=== PATIENT | female | born 1945 | race Two or more races ===

== ENCOUNTER → 2023-04-27 | Outpatient (CLI) | payer MEDICARE, MEDICAID ==
[2023-04-27 10:12] LABS: Basophils # (auto) 0.1 10 ^3/uL (0-0.2); Basophils % (auto) 1.4 % (0.0-2.0); Eosinophils # (auto) 0.1 10 ^3/uL (0-0.8); Hematocrit 38.4 % (36.0-46.0); Hemoglobin 12.4 g/dL (12.2-16.2); Mean Corpuscular Hemoglobin 31.1 pg (28.0-32.0); Mean Corpuscular Hgb Conc. 32.4 g/dL (32.0-36.0); Mean Corpuscular Volume 96.1 fL (80.0-100.0); Monocytes # (auto) 0.2 10 ^3/uL (0-1.3); Monocytes % (auto) 4.5 % (0.0-12.0); Neutrophils % (auto) 75.1 % (37.0-80.0); Red Cell Distribution Width 14.6 % (11.8-14.3); White Blood Cell 5.3 10^3/uL (4.4-10.8)
[2023-04-27 11:01] LABS: Potassium 5.1 mmol/L (3.5-5.1)
[2023-04-27 11:08] LABS: Albumin 3.4 g/dL (3.4-5.0); BUN/Creatinine Ratio 36.2 (10.0-20.0); Bilirubin, Total 0.4 mg/dL (0.2-1.0); Magnesium 2.4 mg/dL (1.6-2.6); Total Protein 6.6 g/dL (6.4-8.2)
== END | disposition home or self-care (01) ==
LOC: LAB 09:56
PROVIDERS: ATTEND Internal Medicine Cardiovascular Disease
DX: I27.21 Secondary pulmonary arterial hypertension (principal); I10 Essential (primary) hypertension; D64.9 Anemia, unspecified
CPT/HCPCS: 36415; 80053; 83735; 85025

== ENCOUNTER 2023-12-02 16:21 | Inpatient (IN) | payer MEDICAID, MEDICARE, OTHER ==
[~2023-12-02] VITALS: Ht 160 cm; Wt 69.2 kg
[2023-12-02] MEDS ORDERED: ALBUTEROL SULF 2.5 MG/0.5ML(0.5%) NEB SOLN NEB ONE (16:45)
[2023-12-02] MEDS ORDERED: IPRATROPIUM BROM 0.5 MG/2.5ML INH SOL NEB ONE (16:45)
[2023-12-02] MEDS ORDERED: DexAMETHasone SOD PHOS 10MG/1ML VIAL INJ IV ONE (17:15)
[2023-12-02 17:16] LABS: Hemoglobin 10.5 g/dL (12.2-16.2); White Blood Cell 6.4 10^3/uL (4.4-10.8)
[2023-12-02 17:22] LABS: Basophils # (auto) 0.1 10 ^3/uL (0-0.2); Basophils % (auto) 1.2 % (0.0-2.0); Eosinophils # (auto) 0.1 10 ^3/uL (0-0.8); Eosinophils % (auto) 1.5 % (0.0-7.0); Hematocrit 32.3 % (36.0-46.0); Lymphocytes # (auto) 0.6 10 ^3/uL (0.4-5.4); Lymphocytes % (auto) 9.5 % (10.0-50.0); Mean Corpuscular Hemoglobin 29.9 pg (28.0-32.0); Mean Corpuscular Hgb Conc. 32.4 g/dL (32.0-36.0); Mean Corpuscular Volume 92.3 fL (80.0-100.0); Monocytes # (auto) 0.4 10 ^3/uL (0-1.3); Neutrophils # (auto) 5.1 10 ^3/uL (1.6-8.6); Neutrophils % (auto) 80.8 % (37.0-80.0); Nucleated Red Blood Cells % 0.1 %; Red Cell Distribution Width 15.2 % (11.8-14.3)
[2023-12-02 17:35] LABS: Base Excess -2.2 mmol/L (-2.0-2.0)
[2023-12-02 17:36] LABS: Alanine Aminotransferase 41 U/L (7-40); Albumin 3.7 g/dL (3.2-4.8); Alkaline Phosphatase 119 U/L (46-116); Anion Gap 10 (5-15); Aspartate Aminotransferase 54 U/L (13-40); Bilirubin, Total 0.3 mg/dL (0.2-1.0); Blood Urea Nitrogen 61 mg/dL (9-23); Calcium 8.3 mg/dL (8.7-10.4); Carbon Dioxide 25 mmol/L (20-30); Chloride 102 mmol/L (98-107); Glucose 82 mg/dL (74-106); Potassium 4.5 mmol/L (3.5-5.1); Sodium 137 mmol/L (136-145); Total Protein 5.8 g/dL (5.7-8.2)
[2023-12-02] MEDS ORDERED: MORPHINE SULFATE INJ 2 MG/ml SYRG IV PRN (20:45)
[2023-12-02] MEDS ORDERED: ALBUTEROL SULF 2.5 MG/0.5ML(0.5%) NEB SOLN NEB PRN (20:45)
[2023-12-02] MEDS ORDERED: NITROGLYCERIN 0.4 MG SL TAB SL PRN (20:45)
[2023-12-02] MEDS ORDERED: ONDANSETRON HCL 4 MG/2 ML VIAL IV PRN (20:45)
[2023-12-02 21:30] VITALS: PULSE 95; RESP 20; O2SAT 95
[2023-12-02 21:47] VITALS: BP 123/44; PULSE 92; RESP 20; TEMP 98.2; O2SAT 96
[2023-12-02 21:50] VITALS: O2SAT 96
[2023-12-02 21:51] VITALS: O2SAT 96
[2023-12-02] MEDS: SACUBITRIL-VALSARTAN 24mg/26mg TAB PO SCH (21:55)
[2023-12-02] MEDS: APIXABAN 5 MG TAB PO SCH (21:55)
[2023-12-03] VITALS (7 sets, daily range): BP systolic 121–125; BP diastolic 41–54; PULSE 68–81; RESP 18–26; TEMP 98.1–98.3; O2SAT 97–100
[2023-12-03 04:15] LABS: Urine Epithelial Cast None Seen /hpf (<5)
[2023-12-03 04:48] LABS: Urine Bacteria NONE SEEN /hpf (None Seen); Urine Blood Negative /uL (Negative); Urine Clarity Clear (Clear); Urine Color Colorless (Yellow); Urine Protein, UAD Negative (Negative); Urine Specific Gravity 1.009 (1.001-1.035); Urine Urobilinogen Normal (Negative); Urine WBC 2 /hpf (0 - 5)
[2023-12-03] MEDS: LEVOTHYROXINE SODIUM 50 MCG TAB PO SCH (06:45)
[2023-12-03] MEDS: buPROPion HCL 75 MG TAB PO SCH ×2 (06:45→18:31)
[2023-12-03 06:46] LABS: Hematocrit 31.3 % (36.0-46.0); Hemoglobin 10.5 g/dL (12.2-16.2); Mean Corpuscular Hgb Conc. 33.4 g/dL (32.0-36.0); Mean Corpuscular Volume 92.8 fL (80.0-100.0); Red Blood Cells 3.37 10^6/uL (4.0-5.20); Red Cell Distribution Width 15.5 % (11.8-14.3); White Blood Cell 5.8 10^3/uL (4.4-10.8)
[2023-12-03 07:03] LABS: Alanine Aminotransferase 35 U/L (7-40); Albumin 3.9 g/dL (3.2-4.8); Alkaline Phosphatase 115 U/L (46-116); Anion Gap 8 (5-15); Aspartate Aminotransferase 43 U/L (13-40); Blood Urea Nitrogen 56 mg/dL (9-23); Calcium 8.1 mg/dL (8.7-10.4); Carbon Dioxide 22 mmol/L (20-30); Chloride 102 mmol/L (98-107); Glucose 104 mg/dL (74-106)
[2023-12-03 07:04] LABS: Bilirubin, Total 0.3 mg/dL (0.2-1.0); Total Protein 6.4 g/dL (5.7-8.2)
[2023-12-03 07:08] LABS: Sodium 132 mmol/L (136-145)
[2023-12-03 07:21] LABS: Band Neutrophils % (manual) 0; Basophils % (manual) 0 (0.0-2.0); Blast Cells 0; Eosinophils % (manual) 0 (0-7); Metamyelocytes % 0; Myelocytes % 0; Promyelocytes % 0; Reactive Lymphocytes 0
[2023-12-03] MEDS: ACETAMINOPHEN 325 MG TAB PO PRN ×2 (09:31→15:38)
[2023-12-03] MEDS: IPRATROPIUM BROM 0.5 MG/2.5ML INH SOL NEB PRN ×2 (10:46→18:23)
[2023-12-03] MEDS: SACUBITRIL-VALSARTAN 24mg/26mg TAB PO SCH ×2 (10:46→21:59)
[2023-12-03] MEDS: FUROSEMIDE 40 MG TAB PO SCH (10:47)
[2023-12-03] MEDS: ALLOPURINOL 300 MG TAB PO SCH (10:47)
[2023-12-03] MEDS: APIXABAN 5 MG TAB PO SCH ×2 (10:47→21:58)
[2023-12-03] MEDS: amLODIPine BESYLATE 5 MG TAB PO SCH (10:47)
[2023-12-03] MEDS ORDERED: AZITHROMYCIN 500MG/ 250ML 250 ML IV ONE (12:45)
[2023-12-03] MEDS: guaiFENesin-DM 100/10mg/5ml SYR PO PRN (12:58)
[2023-12-03 13:34] LABS: Lymphocytes % (manual) 5 (10.0-50.0); Monocytes % (manual) 1 (0-12); Platelet Estimate Adequate
[2023-12-03 16:34] LABS: INR 1.12 (0.9-1.15); Partial Thromboplastin Time 48.7 SEC (24.5-34.5); Prothrombin Time 11.7 sec (9.3-11.8)
[2023-12-03 17:00] LABS: Amphetamine Screen, Urine Neg (NEGATIVE); Barbiturate Scree,Urine Pos (NEGATIVE); Benzodiazephine Screen, Urine Neg (NEGATIVE); Cannabinoid Screen, Urine Neg (NEGATIVE); Cocaine Screen, Urine Neg (NEGATIVE); Opiate Scree,Urine Neg (NEGATIVE); Phencyclidine Screen, Urine Neg (NEGATIVE)
[2023-12-03] MEDS ORDERED: cefTRIAXone 1GM/50ML D5W 50 ML IV ONE (20:00)
[2023-12-03] MEDS: ATORVASTATIN 20 MG TAB PO SCH (21:58)
[2023-12-03] MEDS: methylPREDNISolone SOD SUCC 40 MG/ML VL IV SCH (21:58)
[2023-12-04] VITALS (15 sets, daily range): BP systolic 97–124; BP diastolic 31–49; PULSE 64–92; RESP 16–22; TEMP 98–98.8; O2SAT 92–98
[2023-12-04] MEDS: LEVALBUTEROL HCL 1.25 MG/3 ML NEB NEB SCH ×4 (01:08→18:48)
[2023-12-04] MEDS: IPRATROPIUM BROM 0.5 MG/2.5ML INH SOL NEB SCH ×4 (01:08→18:48)
[2023-12-04 06:58] LABS: Alanine Aminotransferase 24 U/L (7-40); Albumin 3.3 g/dL (3.2-4.8); Alkaline Phosphatase 94 U/L (46-116); Anion Gap 6 (5-15); Aspartate Aminotransferase 35 U/L (13-40); BUN/Creatinine Ratio 27.6 (10.0-20.0); Basophils # (auto) 0 10 ^3/uL (0-0.2); Basophils % (auto) 0.6 % (0.0-2.0); Blood Urea Nitrogen 51 mg/dL (9-23); Calcium 8.1 mg/dL (8.5-10.1); Carbon Dioxide 22 mmol/L (20-30); Chloride 103 mmol/L (98-107); Cholesterol 147 mg/dL (< 200); Eosinophils # (auto) 0 10 ^3/uL (0-0.8); Eosinophils % (auto) 0.2 % (0.0-7.0); Glucose 86 mg/dL (74-106); HDL Cholesterol 54 mg/dL (40-59); Hematocrit 27.1 % (36.0-46.0); Hemoglobin 9.1 g/dL (12.2-16.2); LDL Cholesterol 75 mg/dL (< 100); Lymphocytes # (auto) 0.3 10 ^3/uL (0.4-5.4); Lymphocytes % (auto) 5.3 % (10.0-50.0); Mean Corpuscular Hemoglobin 30.8 pg (28.0-32.0); Mean Corpuscular Hgb Conc. 33.5 g/dL (32.0-36.0); Mean Corpuscular Volume 91.9 fL (80.0-100.0); Monocytes # (auto) 0.2 10 ^3/uL (0-1.3); Monocytes % (auto) 3.9 % (0.0-12.0); Neutrophils # (auto) 4.2 10 ^3/uL (1.6-8.6); Potassium 5.2 mmol/L (3.5-5.1); Red Blood Cells 2.95 10^6/uL (4.0-5.20); Red Cell Distribution Width 15.6 % (11.8-14.3); Sodium 131 mmol/L (136-145); Triglycerides 84 mg/dL (< 150); White Blood Cell 4.7 10^3/uL (4.4-10.8)
[2023-12-04 06:59] LABS: Bilirubin, Total 0.3 mg/dL (0.2-1.0); Total Protein 5.3 g/dL (5.7-8.2)
[2023-12-04 07:06] LABS: CRP High Sensitivity 3.09 mg/dL (<1.0)
[2023-12-04 07:37] LABS: Magnesium 1.9 mg/dL (1.6-2.6)
[2023-12-04] MEDS: buPROPion HCL 75 MG TAB PO SCH ×2 (07:46→18:12)
[2023-12-04] MEDS: LEVOTHYROXINE SODIUM 50 MCG TAB PO SCH (07:46)
[2023-12-04] MEDS ORDERED: PNEUMOCOCCAL VACC POLYS 25 MCG/0.5 ML VIAL IM ONE (08:15)
[2023-12-04] MEDS ORDERED: CALCIUM GLUC 1,000mg/50ml-NS 50 ML IV ONE (08:45)
[2023-12-04] MEDS ORDERED: AZITHROMYCIN 500MG/ 250ML 250 ML IV SCH (10:00)
[2023-12-04] MEDS ORDERED: APIX5TAB PO (10:28)
[2023-12-04] MEDS ORDERED: RIOC1TAB14 PO (10:28)
[2023-12-04] MEDS ORDERED: SACU1TAB7 PO (10:28)
[2023-12-04] MEDS ORDERED: PRIM50TA5 PO (10:28)
[2023-12-04] MEDS ORDERED: FURO40TA4 PO (10:28)
[2023-12-04] MEDS ORDERED: MONT-8 OR (10:28)
[2023-12-04] MEDS ORDERED: PRIM250T29 PO (10:28)
[2023-12-04] MEDS ORDERED: FLUO-125 PO (10:28)
[2023-12-04] MEDS ORDERED: ROFL1TAB2 PO (10:28)
[2023-12-04] MEDS ORDERED: LEVO50TA7 PO (10:28)
[2023-12-04] MEDS ORDERED: ROPI1TAB4 PO (10:28)
[2023-12-04] MEDS ORDERED: CHOL20007 OR (10:28)
[2023-12-04] MEDS ORDERED: FENO145T27 PO (10:28)
[2023-12-04] MEDS ORDERED: ALL300T PO (10:28)
[2023-12-04] MEDS ORDERED: SUCR1TAB22 OR (10:28)
[2023-12-04] MEDS ORDERED: TIZA4CAP PO (10:28)
[2023-12-04] MEDS ORDERED: AMLO1TAB22 PO (10:28)
[2023-12-04] MEDS ORDERED: PANT1INJ3 PO (10:28)
[2023-12-04] MEDS ORDERED: TRAZ-228 PO (10:28)
[2023-12-04] MEDS: guaiFENesin-DM 100/10mg/5ml SYR PO PRN ×3 (11:45→22:13)
[2023-12-04] MEDS: ALLOPURINOL 300 MG TAB PO SCH (11:47)
[2023-12-04] MEDS: FUROSEMIDE 40 MG TAB PO SCH (11:48)
[2023-12-04] MEDS: methylPREDNISolone SOD SUCC 40 MG/ML VL IV SCH ×2 (11:48→22:07)
[2023-12-04] MEDS: APIXABAN 5 MG TAB PO SCH ×2 (11:49→22:06)
[2023-12-04] MEDS: SACUBITRIL-VALSARTAN 24mg/26mg TAB PO SCH (11:50)
[2023-12-04] MEDS: amLODIPine BESYLATE 5 MG TAB PO SCH (11:50)
[2023-12-04] MEDS: cefTRIAXone 1GM/50ML D5W 50 ML IV SCH (11:52)
[2023-12-04] MEDS: RIOCIGUAT 2 MG PO SCH ×2 (14:00→22:00)
[2023-12-04] MEDS ORDERED: DOXYCYCLINE 100 MG TAB/CAP PO ONE (16:45)
[2023-12-04] MEDS: DOXYCYCLINE 100 MG TAB/CAP PO SCH (22:06)
[2023-12-04] MEDS: ATORVASTATIN 20 MG TAB PO SCH (22:06)
[2023-12-05] VITALS (18 sets, daily range): BP systolic 111–145; BP diastolic 44–74; PULSE 62–94; RESP 16–24; TEMP 97.6–98; O2SAT 90–100
[2023-12-05] MEDS: LEVALBUTEROL HCL 1.25 MG/3 ML NEB NEB SCH ×5 (00:26→23:41)
[2023-12-05] MEDS: IPRATROPIUM BROM 0.5 MG/2.5ML INH SOL NEB SCH ×5 (00:26→23:41)
[2023-12-05] MEDS: guaiFENesin-DM 100/10mg/5ml SYR PO PRN ×4 (04:15→23:20)
[2023-12-05 05:22] LABS: Basophils # (auto) 0 10 ^3/uL (0-0.2); Eosinophils # (auto) 0 10 ^3/uL (0-0.8); Eosinophils % (auto) 0.1 % (0.0-7.0); Hematocrit 28.6 % (36.0-46.0); Hemoglobin 9.4 g/dL (12.2-16.2); Lymphocytes # (auto) 0.2 10 ^3/uL (0.4-5.4); Lymphocytes % (auto) 7.4 % (10.0-50.0); Mean Corpuscular Hemoglobin 30.6 pg (28.0-32.0); Mean Corpuscular Hgb Conc. 32.8 g/dL (32.0-36.0); Mean Corpuscular Volume 93.3 fL (80.0-100.0); Monocytes # (auto) 0.1 10 ^3/uL (0-1.3); Monocytes % (auto) 3.6 % (0.0-12.0); Neutrophils # (auto) 2.6 10 ^3/uL (1.6-8.6); Neutrophils % (auto) 87.9 % (37.0-80.0); Nucleated Red Blood Cells % 0.2 %; Red Blood Cells 3.07 10^6/uL (4.0-5.20); Red Cell Distribution Width 15.3 % (11.8-14.3)
[2023-12-05 05:33] LABS: Alanine Aminotransferase 24 U/L (7-40); Albumin 3.4 g/dL (3.2-4.8); Alkaline Phosphatase 93 U/L (46-116); Anion Gap 7 (5-15); Aspartate Aminotransferase 33 U/L (13-40); BUN/Creatinine Ratio 29.6 (10.0-20.0); Bilirubin, Total 0.3 mg/dL (0.2-1.0); Blood Urea Nitrogen 42 mg/dL (9-23); Calcium 8.3 mg/dL (8.5-10.1); Carbon Dioxide 22 mmol/L (20-30); Chloride 103 mmol/L (98-107); Glucose 130 mg/dL (74-106); Potassium 5.1 mmol/L (3.5-5.1); Sodium 132 mmol/L (136-145); Total Protein 5.4 g/dL (5.7-8.2)
[2023-12-05 05:41] LABS: CRP High Sensitivity 2.39 mg/dL (<1.0)
[2023-12-05] MEDS: LEVOTHYROXINE SODIUM 50 MCG TAB PO SCH (07:04)
[2023-12-05] MEDS: RIOCIGUAT 2 MG PO SCH ×3 (07:04→22:00)
[2023-12-05] MEDS: buPROPion HCL 75 MG TAB PO SCH ×2 (07:04→18:21)
[2023-12-05] MEDS: methylPREDNISolone SOD SUCC 40 MG/ML VL IV SCH ×2 (09:40→23:19)
[2023-12-05] MEDS: cefTRIAXone 1GM/50ML D5W 50 ML IV SCH (09:40)
[2023-12-05] MEDS: PANTOPRAZOLE 40 MG TAB PO SCH (09:41)
[2023-12-05] MEDS: APIXABAN 5 MG TAB PO SCH ×2 (09:41→23:20)
[2023-12-05] MEDS: ALLOPURINOL 300 MG TAB PO SCH (09:41)
[2023-12-05] MEDS: DOXYCYCLINE 100 MG TAB/CAP PO SCH ×2 (09:41→23:19)
[2023-12-05] MEDS: amLODIPine BESYLATE 5 MG TAB PO SCH (09:41)
[2023-12-05] MEDS: FUROSEMIDE 40 MG TAB PO SCH (09:42)
[2023-12-05] MEDS ORDERED: ACETYLCYSTEINE 20%(200MG/ML) SOL 4ML NEB SCH (14:00)
[2023-12-05] MEDS: ACETYLCYSTEINE 20%(200MG/ML) SOL 4ML NEB SCH (18:09)
[2023-12-05] MEDS: ATORVASTATIN 20 MG TAB PO SCH (23:20)
[2023-12-06] VITALS (23 sets, daily range): BP systolic 103–149; BP diastolic 44–62; PULSE 56–93; RESP 15–30; TEMP 97–98.4; O2SAT 91–100
[2023-12-06 06:37] LABS: Basophils # (auto) 0 10 ^3/uL (0-0.2); Basophils % (auto) 0.5 % (0.0-2.0); Eosinophils # (auto) 0 10 ^3/uL (0-0.8); Eosinophils % (auto) 0.1 % (0.0-7.0); Hematocrit 29.4 % (36.0-46.0); Hemoglobin 9.5 g/dL (12.2-16.2); Lymphocytes # (auto) 0.2 10 ^3/uL (0.4-5.4); Lymphocytes % (auto) 7.3 % (10.0-50.0); Mean Corpuscular Hgb Conc. 32.4 g/dL (32.0-36.0); Mean Corpuscular Volume 92.4 fL (80.0-100.0); Monocytes # (auto) 0.1 10 ^3/uL (0-1.3); Neutrophils % (auto) 89.1 % (37.0-80.0); Nucleated Red Blood Cells % 0.1 %; Red Blood Cells 3.18 10^6/uL (4.0-5.20); Red Cell Distribution Width 15.2 % (11.8-14.3); White Blood Cell 3.4 10^3/uL (4.4-10.8)
[2023-12-06] MEDS: LEVALBUTEROL HCL 1.25 MG/3 ML NEB NEB SCH ×3 (06:49→18:26)
[2023-12-06] MEDS: IPRATROPIUM BROM 0.5 MG/2.5ML INH SOL NEB SCH ×3 (06:49→18:26)
[2023-12-06] MEDS: ACETYLCYSTEINE 20%(200MG/ML) SOL 4ML NEB SCH ×4 (06:50→18:26)
[2023-12-06 06:52] LABS: Alanine Aminotransferase 25 U/L (7-40); Albumin 3.4 g/dL (3.2-4.8); Alkaline Phosphatase 92 U/L (46-116); Anion Gap 6 (5-15); Aspartate Aminotransferase 35 U/L (13-40); BUN/Creatinine Ratio 33.3 (10.0-20.0); Bilirubin, Total 0.3 mg/dL (0.2-1.0); Blood Urea Nitrogen 42 mg/dL (9-23); Calcium 8.4 mg/dL (8.5-10.1); Carbon Dioxide 23 mmol/L (20-30); Chloride 103 mmol/L (98-107); Glucose 113 mg/dL (74-106); Potassium 5.2 mmol/L (3.5-5.1); Sodium 132 mmol/L (136-145); Total Protein 5.4 g/dL (5.7-8.2)
[2023-12-06] MEDS: LEVOTHYROXINE SODIUM 50 MCG TAB PO SCH (06:56)
[2023-12-06] MEDS: RIOCIGUAT 2 MG PO SCH ×3 (06:56→22:00)
[2023-12-06] MEDS: buPROPion HCL 75 MG TAB PO SCH ×2 (06:56→18:35)
[2023-12-06] MEDS: guaiFENesin-DM 100/10mg/5ml SYR PO PRN ×2 (06:57→12:06)
[2023-12-06] MEDS: FERROUS SULFATE 325mg EC TAB PO SCH ×2 (09:59→18:07)
[2023-12-06] MEDS: cefTRIAXone 1GM/50ML D5W 50 ML IV SCH (09:59)
[2023-12-06] MEDS: methylPREDNISolone SOD SUCC 40 MG/ML VL IV SCH ×2 (09:59→22:47)
[2023-12-06] MEDS: PANTOPRAZOLE 40 MG TAB PO SCH (09:59)
[2023-12-06] MEDS: ALLOPURINOL 300 MG TAB PO SCH (10:00)
[2023-12-06] MEDS: APIXABAN 5 MG TAB PO SCH ×2 (10:00→22:47)
[2023-12-06] MEDS: DOXYCYCLINE 100 MG TAB/CAP PO SCH ×2 (10:00→22:47)
[2023-12-06] MEDS: amLODIPine BESYLATE 5 MG TAB PO SCH (10:01)
[2023-12-06] MEDS: FUROSEMIDE 40 MG TAB PO SCH ×3 (10:01→22:48)
[2023-12-06] MEDS ORDERED: methylPREDNISolone SOD SUCC 40 MG/ML VL IV ONE (14:00)
[2023-12-06 14:21] LABS: Base Excess -3.1 mmol/L (-2.0-2.0)
[2023-12-06] MEDS ORDERED: ALBUTEROL SULF 2.5 MG/0.5ML(0.5%) NEB SOLN NEB ONE (15:30)
[2023-12-06] MEDS ORDERED: IPRATROPIUM BROM 0.5 MG/2.5ML INH SOL NEB ONE (15:30)
[2023-12-06] MEDS ORDERED: IPRATROPIUM BROM 0.5 MG/2.5ML INH SOL ONE (15:36)
[2023-12-06] MEDS ORDERED: ALBUTEROL SULF 2.5 MG/0.5ML(0.5%) NEB SOLN ONE (15:36)
[2023-12-06] MEDS: MONTELUKAST SODIUM 10 MG TAB PO SCH (22:47)
[2023-12-06] MEDS: ATORVASTATIN 20 MG TAB PO SCH (22:47)
[2023-12-07] VITALS (22 sets, daily range): BP systolic 114–178; BP diastolic 43–82; PULSE 71–86; RESP 12–29; TEMP 97.6–98.2; O2SAT 92–100
[2023-12-07] MEDS: IPRATROPIUM BROM 0.5 MG/2.5ML INH SOL NEB SCH ×4 (00:03→19:17)
[2023-12-07] MEDS: LEVALBUTEROL HCL 1.25 MG/3 ML NEB NEB SCH ×4 (00:03→19:17)
[2023-12-07 05:57] LABS: Basophils # (auto) 0 10 ^3/uL (0-0.2); Basophils % (auto) 0.1 % (0.0-2.0); Eosinophils # (auto) 0 10 ^3/uL (0-0.8); Hematocrit 30.3 % (36.0-46.0); Hemoglobin 9.6 g/dL (12.2-16.2); Lymphocytes # (auto) 0.2 10 ^3/uL (0.4-5.4); Lymphocytes % (auto) 7.1 % (10.0-50.0); Mean Corpuscular Hgb Conc. 31.6 g/dL (32.0-36.0); Mean Corpuscular Volume 94.7 fL (80.0-100.0); Monocytes # (auto) 0.1 10 ^3/uL (0-1.3); Monocytes % (auto) 3.2 % (0.0-12.0); Neutrophils # (auto) 2.7 10 ^3/uL (1.6-8.6); Neutrophils % (auto) 89.6 % (37.0-80.0); Red Cell Distribution Width 15.2 % (11.8-14.3)
[2023-12-07] MEDS: RIOCIGUAT 2 MG PO SCH ×3 (06:00→22:32)
[2023-12-07 06:13] LABS: Alanine Aminotransferase 27 U/L (7-40); Alkaline Phosphatase 89 U/L (46-116); Anion Gap 8 (5-15); BUN/Creatinine Ratio 23.5 (10.0-20.0); CRP High Sensitivity 0.65 mg/dL (<1.0); Calcium 8.6 mg/dL (8.5-10.1); Carbon Dioxide 21 mmol/L (20-30); Chloride 103 mmol/L (98-107); Glucose 124 mg/dL (74-106); Potassium 4.4 mmol/L (3.5-5.1); Sodium 132 mmol/L (136-145)
[2023-12-07 06:14] LABS: Albumin 3.4 g/dL (3.2-4.8); Aspartate Aminotransferase 33 U/L (13-40); Bilirubin, Total 0.3 mg/dL (0.2-1.0); Total Protein 5.6 g/dL (5.7-8.2)
[2023-12-07 06:26] LABS: Blood Urea Nitrogen 28 mg/dL (9-23)
[2023-12-07] MEDS: LEVOTHYROXINE SODIUM 50 MCG TAB PO SCH (06:33)
[2023-12-07] MEDS: buPROPion HCL 75 MG TAB PO SCH ×2 (06:33→17:26)
[2023-12-07] MEDS: FUROSEMIDE 40 MG TAB PO SCH ×2 (06:34→17:26)
[2023-12-07] MEDS: ACETYLCYSTEINE 20%(200MG/ML) SOL 4ML NEB SCH ×3 (06:38→19:17)
[2023-12-07] MEDS: FERROUS SULFATE 325mg EC TAB PO SCH ×2 (08:00→17:26)
[2023-12-07] MEDS: cefTRIAXone 1GM/50ML D5W 50 ML IV SCH (09:00)
[2023-12-07] MEDS: FLUoxetine HCL 20 MG CAP PO SCH (09:37)
[2023-12-07] MEDS: APIXABAN 5 MG TAB PO SCH ×2 (09:37→22:12)
[2023-12-07] MEDS: PANTOPRAZOLE 40 MG/10 ML VIAL INJ IV SCH (09:37)
[2023-12-07] MEDS: methylPREDNISolone SOD SUCC 40 MG/ML VL IV SCH ×2 (09:37→22:13)
[2023-12-07] MEDS: DOXYCYCLINE 100 MG TAB/CAP PO SCH ×2 (09:37→22:12)
[2023-12-07] MEDS ORDERED: EMPAGLIFLOZIN 10 MG TAB PO SCH (10:00)
[2023-12-07] MEDS: ALLOPURINOL 300 MG TAB PO SCH (10:00)
[2023-12-07] MEDS: amLODIPine BESYLATE 5 MG TAB PO SCH (10:00)
[2023-12-07] MEDS: ATORVASTATIN 20 MG TAB PO SCH (22:12)
[2023-12-07] MEDS: MONTELUKAST SODIUM 10 MG TAB PO SCH (22:12)
[2023-12-07] MEDS: guaiFENesin-DM 100/10mg/5ml SYR PO PRN (22:36)
[2023-12-07] MEDS: ACETAMINOPHEN 325 MG TAB PO PRN (22:46)
[2023-12-08] VITALS (13 sets, daily range): BP systolic 116–135; BP diastolic 60–83; PULSE 69–88; RESP 16–20; TEMP 97.9–98.4; O2SAT 94–99
[2023-12-08] MEDS: IPRATROPIUM BROM 0.5 MG/2.5ML INH SOL NEB SCH ×4 (00:27→13:26)
[2023-12-08] MEDS: LEVALBUTEROL HCL 1.25 MG/3 ML NEB NEB SCH ×4 (00:27→13:26)
[2023-12-08 05:52] LABS: Basophils # (auto) 0 10 ^3/uL (0-0.2); Basophils % (auto) 0.2 % (0.0-2.0); Eosinophils # (auto) 0 10 ^3/uL (0-0.8); Hematocrit 31.4 % (36.0-46.0); Hemoglobin 10.1 g/dL (12.2-16.2); Lymphocytes # (auto) 0.2 10 ^3/uL (0.4-5.4); Lymphocytes % (auto) 5.7 % (10.0-50.0); Mean Corpuscular Hemoglobin 29.9 pg (28.0-32.0); Mean Corpuscular Hgb Conc. 32.1 g/dL (32.0-36.0); Monocytes # (auto) 0.1 10 ^3/uL (0-1.3); Neutrophils # (auto) 3.7 10 ^3/uL (1.6-8.6); Neutrophils % (auto) 91.1 % (37.0-80.0); Red Blood Cells 3.38 10^6/uL (4.0-5.20); Red Cell Distribution Width 15.7 % (11.8-14.3); White Blood Cell 4.1 10^3/uL (4.4-10.8)
[2023-12-08] MEDS: buPROPion HCL 75 MG TAB PO SCH ×2 (05:58→06:27)
[2023-12-08] MEDS: FUROSEMIDE 40 MG TAB PO SCH (06:02)
[2023-12-08] MEDS: RIOCIGUAT 2 MG PO SCH ×2 (06:03→14:21)
[2023-12-08 06:07] LABS: Alanine Aminotransferase 24 U/L (7-40); Albumin 3.6 g/dL (3.2-4.8); Alkaline Phosphatase 91 U/L (46-116); Anion Gap 9 (5-15); Aspartate Aminotransferase 30 U/L (13-40); BUN/Creatinine Ratio 27.5 (10.0-20.0); Bilirubin, Total 0.2 mg/dL (0.2-1.0); Calcium 8.5 mg/dL (8.7-10.4); Carbon Dioxide 22 mmol/L (20-30); Chloride 105 mmol/L (98-107); Glucose 129 mg/dL (74-106); Potassium 4.4 mmol/L (3.5-5.1); Sodium 136 mmol/L (136-145); Total Protein 5.7 g/dL (5.7-8.2)
[2023-12-08] MEDS: LEVOTHYROXINE SODIUM 50 MCG TAB PO SCH (06:27)
[2023-12-08 06:28] LABS: Blood Urea Nitrogen 38 mg/dL (9-23)
[2023-12-08 06:39] LABS: CRP High Sensitivity 0.49 mg/dL (<1.0)
[2023-12-08] MEDS: ACETYLCYSTEINE 20%(200MG/ML) SOL 4ML NEB SCH ×2 (07:07→13:26)
[2023-12-08] MEDS: FERROUS SULFATE 325mg EC TAB PO SCH (08:42)
[2023-12-08] MEDS: cefTRIAXone 1GM/50ML D5W 50 ML IV SCH (08:43)
[2023-12-08] MEDS: APIXABAN 5 MG TAB PO SCH (08:49)
[2023-12-08] MEDS: amLODIPine BESYLATE 5 MG TAB PO SCH (08:49)
[2023-12-08] MEDS: FLUoxetine HCL 20 MG CAP PO SCH (08:50)
[2023-12-08] MEDS: ALLOPURINOL 300 MG TAB PO SCH (08:50)
[2023-12-08] MEDS: DOXYCYCLINE 100 MG TAB/CAP PO SCH (08:50)
[2023-12-08] MEDS: methylPREDNISolone SOD SUCC 40 MG/ML VL IV SCH (08:54)
[2023-12-08] MEDS: PANTOPRAZOLE 40 MG/10 ML VIAL INJ IV SCH (08:54)
[2023-12-08] MEDS ORDERED: DOXY-286 PO (11:46)
[2023-12-08] MEDS ORDERED: METH4PAK PO (11:46)
[2023-12-08] MEDS ORDERED: IPR002IS NEB (12:51)
[2023-12-08] MEDS ORDERED: PNEUMOCOCCAL VACC POLYS 25 MCG/0.5 ML VIAL IM ONE (16:00)
== END 2023-12-08 16:31 | disposition home or self-care (01) | DRG 189 ==
LOC: ER 16:21 → TELE 20:40 → TELE-WESTW 12-03 22:30 → DOU IN ICU 12-06 14:54 → TELE-WESTW 12-07 15:13
PROVIDERS: ADMIT Internal Medicine; ATTEND Emergency Medicine
PROC: 5A09357 Assistance with Respiratory Ventilation, Less than 24 Consecutive Hours, Continuous Positive Airway Pressure (ICD-10-PCS; principal; 2023-12-06)
DX: J96.21 Acute and chronic respiratory failure with hypoxia (principal); N17.0 Acute kidney failure with tubular necrosis; I13.0 Hypertensive heart and chronic kidney disease with heart failure and stage 1 through stage 4 chronic kidney disease, or unspecified chronic kidney disease; I50.32 Chronic diastolic (congestive) heart failure; J20.9 Acute bronchitis, unspecified; N18.32 Chronic kidney disease, stage 3b; J43.9 Emphysema, unspecified; E87.5 Hyperkalemia; E03.9 Hypothyroidism, unspecified; F32.A Depression, unspecified; E83.51 Hypocalcemia; Z88.1 Allergy status to other antibiotic agents; Z88.5 Allergy status to narcotic agent; Z88.8 Allergy status to other drugs, medicaments and biological substances; Z79.899 Other long term (current) drug therapy; Z87.891 Personal history of nicotine dependence; Z86.73 Personal history of transient ischemic attack (TIA), and cerebral infarction without residual deficits; Z86.718 Personal history of other venous thrombosis and embolism; Z79.01 Long term (current) use of anticoagulants
CPT/HCPCS: 36415; 36600; 71045; 71250; 76705; 78582; 80053; 80061; 80307; 81001; 82270; 82306; 82607; 82746; 82805; 83540; 83550; 83605; 83615; 83735; 83880; 84443; 84484; 85007; 85025; 85027; 85045; 85610; 85730; 86141; 87040; 87070; 87081; 87205; 93306; 93970; 94640; 94660; 97163; C9113; G0378; J1100; J2405

== ENCOUNTER → 2023-12-17 | Outpatient (CLI) | payer OTHER ==
[~2023-12-17] MED LIST: ALL300T PO; AMLO1TAB22 PO; APIX5TAB PO; CHOL20007 OR; DOXY-286 PO; FENO145T27 PO; FLUO-125 PO; FURO40TA4 PO; IPR002IS NEB; LEVO50TA7 PO; METH4PAK PO; MONT-8 OR; PANT1INJ3 PO; PRIM250T29 PO; PRIM50TA5 PO; RIOC1TAB14 PO; ROFL1TAB2 PO; ROPI1TAB4 PO; SUCR1TAB22 OR; TIZA4CAP PO; TRAZ-228 PO
[2023-12-17 12:15] LABS: Alanine Aminotransferase 14 U/L (7-40); Albumin 3.5 g/dL (3.2-4.8); Alkaline Phosphatase 84 U/L (46-116); Anion Gap 6 (5-15); Aspartate Aminotransferase 32 U/L (13-40); BUN/Creatinine Ratio 14.1 (10.0-20.0); Blood Urea Nitrogen 21 mg/dL (9-23); Calcium 8.6 mg/dL (8.5-10.1); Carbon Dioxide 27 mmol/L (20-30); Chloride 107 mmol/L (98-107); Cholesterol 145 mg/dL (< 200); Glucose 104 mg/dL (74-106); HDL Cholesterol 63 mg/dL (40-59); LDL Cholesterol 67 mg/dL (< 100); Potassium 3.6 mmol/L (3.5-5.1); Sodium 140 mmol/L (136-145); Triglycerides 75 mg/dL (< 150)
[2023-12-17 12:16] LABS: Bilirubin, Total 0.4 mg/dL (0.2-1.0)
== END | disposition home or self-care (01) ==
LOC: LAB 10:12
PROVIDERS: ATTEND Internal Medicine
DX: N18.30 Chronic kidney disease, stage 3 unspecified (principal); E03.9 Hypothyroidism, unspecified
CPT/HCPCS: 36415; 80053; 80061

== ENCOUNTER → 2023-12-17 | Outpatient (CLI) | payer OTHER ==
[2023-12-17 12:16] LABS: Base Excess -0.2 mmol/L (-2.0-2.0)
== END | disposition home or self-care (01) ==
LOC: RT 10:47
PROVIDERS: ATTEND Internal Medicine
DX: J44.9 Chronic obstructive pulmonary disease, unspecified (principal); J98.4 Other disorders of lung
CPT/HCPCS: 36600; 82805